=== PATIENT | male | born 2005 | race African-American/Black ===

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

== ENCOUNTER 2024-09-19 02:59 | Emergency (ER) | payer OTHER ==
[2024-09-19] MEDS ORDERED: Amoxicillin/Clavulanate K 875-125 MG Tab PO ONE (03:00)
== END 2024-09-19 03:30 | disposition home or self-care (01) ==
LOC: FB.ED 02:59
DX: S71.152A Open bite, left thigh, initial encounter (principal); W54.0XXA Bitten by dog, initial encounter
CPT/HCPCS: 99283; A9270-GY